=== PATIENT | male | born 2000 | race Caucasian/White ===

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

== ENCOUNTER 2022-06-01 04:53 | Emergency (ER) | payer OTHER ==
[~2022-06-01] VITALS: Ht 180.3 cm; Wt 58.4 kg
[2022-06-01 04:56] VITALS: BP 134/94
[2022-06-01] MEDS ORDERED: KETOROLAC 30 MG/ML VIAL IM ONE (05:15)
--- NOTE | 2022-06-01 05:18 | ED Chest Pain ---
General Chief Complaint: Chest Wall Stated Complaint: ONGOING CHEST PAIN Nursing Triage Note: Patient states that he has had intermittent chest pain for approximately 7 months. Patient reports that he hasn't seen a doctor for this pain. Patient describes it as a stabbing, sharp pain on the left side of his chest that goes into his shoulder. Patient states it gets worse when he exhales and if he squeezes the area, it feels better. Source: patient, family Exam Limitations: no limitations History of Present Illness Date Seen by Provider: Jun 01, 2022 Time Seen by Provider: 04:55 Initial Comments 22-year-old male with above history coming in due to chest pain. Has been almost constant pain going on for more than 6 months. He has not seen anyone for it in the past. Takes ibuprofen for it intermittently which helps. The more he thinks about it, the worse it gets. He massages his chest and it does help with the pain. Denies any fever, shortness of breath, lower extremity pain or swelling, hemoptysis, cough, recent long travel, recent surgeries, prior history of DVT or PE, or any other concerns. Denies any family history of early cardiac . Allergies and Home Medications Allergies Coded Allergies: No Known Drug Allergies (Unverified , 12/01/18) Patient Home Medication List Home Medication List Reviewed: Yes Cephalexin (Cephalexin) 500 Mg Tablet, 500 MG PO TID Prescribed by: EZRA YOU on 10/03/192199 Hydrocodone Bit/Acetaminophen (Lortab 5 Mg Tablet) 1 Tab Tab, 1 EACH PO Q8H PRN for PAIN-SEVERE (8-10) Prescribed by: EZRA YOU on 10/03/192303 Ibuprofen (Ibuprofen) 800 Mg Tablet, 800 MG PO Q8H PRN for PAIN Prescribed by: EZRA YOU on 10/03/192199 Ondansetron (Ondansetron Odt) 4 Mg Tab.rapdis, 4 MG PO Q6H PRN for N AUSEA/VOMITING Prescribed by: EZRA YOU on 10/03/192199 Review of Systems Review of Systems Constitutional: No fever EENTM: No Blurred Vision Respiratory: Denies Cough Cardiovascular: Chest Pain Gastrointestinal: Denies Abdominal Pain Genitourinary: No Symptoms Reported Musculoskeletal: no symptoms reported Skin: no symptoms reported Psychiatric/Neurological: No Symptoms Reported Endocrine: No Symptoms Reported Hematologic/Lymphatic: No Symptoms Reported All Other Systems Reviewed Negative Unless Noted: Yes Past Azvkrqm-Emrfog-Bggywj Hx Patient Social History Tobacco Use?: No Substance use?: No Alcohol Use?: No Pt feels they are or have been: No Seasonal Allergies Seasonal Allergies: No Past Medical History Surgeries: No Respiratory: No Cardiac: No Neurological: No Genitourinary: No Gastrointestinal: No Musculoskeletal: No Endocrine: No HEENT: No Cancer: No Psychosocial: No Integumentary: No Blood Disorders: No Physical Exam Vital Signs Vital Signs - First Documented 06/01/22 04:56 Temp 37.0 Pulse 93 Resp 16 B/P (MAP) 134/94 (107) Pulse Ox 98 O2 Delivery Room Air Capillary Refill : Less Than 3 Seconds Height, Weight, BMI Height: 5'7.00" Weight: 125lbs. oz. 56.501876kq; 17.00 BMI Method:Stated General Appearance: No Apparent Distress, WD/WN HEENT: PERRL/EOMI, Normal ENT Inspection, Pharynx Normal Neck: Full Range of Motion, Normal Inspection, Non Tender, Supple Respiratory: Chest Non Tender, Lungs Clear, Normal Breath Sounds, No Accessory Muscle Use, No Respiratory Distress, Other (Pushing on his chest recreates the pain) Cardiovascular: Regular Rate, Rhythm, No Edema, Normal Peripheral Pulses Gastrointestinal: Normal Bowel Sounds, Non Tender, Soft; No Distended, No Guarding Extremity: Normal Capillary Refill, Normal Inspection, Normal Range of Motion, Non Tender, No Calf Tenderness, No Pedal Edema Neurologic/Psychiatric: Alert, No Motor/Sensory Deficits, Normal Mood/Affect Skin: Normal Color, Warm/Dry Lymphatic: No Adenopathy Procedures/Interventions Suture Size: 5-0 Progress/Results/Core Measures Results/Orders My Orders Orders - ALICIA HARDWICK MD Ketorolac Injection (Toradol Injection) (06/01/22 05:15) Ekg Tracing (06/01/22 05:11) Medications Given in ED Current Medications Medications Dose Ordered Sig/George Route Start Time Stop Time Status Last Admin Dose Admin Ketorolac Tromethamine 15 mg ONCE ONCE IM 06/01/22 05:15 06/01/22 05:17 DC 06/01/22 05:09 15 MG Vital Signs/I&O 06/01/22 04:56 Temp 37.0 Pulse 93 Resp 16 B/P (MAP) 134/94 (107) Pulse Ox 98 O2 Delivery Room Air Blood Pressure Mean: 107 Progress Progress Note : Progress Note 22-year-old male presenting for chest pain has been ongoing for over half a year. ABCs were intact and vitals were stable on presentation. Physical exam reassuring, and is significant for focal tenderness on his chest that recreates his pain. EKG with no acute ischemic changes. He is very low risk for ACS given his age and no risk factors and pain for more than 6 months makes this ess entially excluded. He is low risk for a PE per Stafford criteria and is PERC negative. I did a [id number] ultrasound and it shows no pericardial effusion, normal ejection fraction, and normal lung sliding ruling out a PE. He was given an IM Toradol shot. Told to follow-up with his PCP which he is agreeable to Initial ECG Impression Date: Jun 01, 2022 Initial ECG Impression Time: 05:02 Initial ECG Rate: 86 Initial ECG Rhythm: Normal Sinus Comment Narrow QRS, normal axis, no significant ST changes or T wave abnormalities Departure Impression Primary Impression: Chest wall pain Disposition: 01 HOME, SELF-CARE Condition: Stable Departure-Patient Inst. Decision time for Depature: 05:18 Referrals: GAL TELLEZ APRN (PCP/Family) Primary Care Physician Patient Instructions: Chest Pain That Is Not Caused by the Heart (DC) Add. Discharge Instructions: When you get this discomfort, you can try massaging the area, taking Tylenol and/or ibuprofen, or things like a heating pad. Try to do anything to take your mind off of it. Follow-up with your regular doctor to see if they would do a referral to cardiology if they deem appropriate. ALICIA HARDWICK MD Jun 01, 2022 05:18
== END 2022-06-01 05:20 | disposition home or self-care (01) ==
LOC: EDUNIT# 04:53 → ER FS 04:55
DX: R07.89 Other chest pain (principal); Z28.310 Unvaccinated for COVID-19
CPT/HCPCS: 93005